=== PATIENT | male | born 1950 | race Two or more races ===

== ENCOUNTER 2018-07-10 09:47 | Emergency (ER) | payer OTHER ==
[~2018-07-10] VITALS: Ht 180.3 cm; Wt 74.8 kg
[2018-07-10] MEDS ORDERED: KEFLEX500 MG (10:03)
[2018-07-10] MEDS ORDERED: SULINDAC200 MG (10:04)
== END 2018-07-10 13:00 | disposition home or self-care (01) ==
LOC: ER 09:47
DX: L29.8 Other pruritus (principal); R60.0 Localized edema; T36.1X5A Adverse effect of cephalosporins and other beta-lactam antibiotics, initial encounter; Y92.89 Other specified places as the place of occurrence of the external cause